=== PATIENT | male | born 1960 | race Caucasian/White ===

== ENCOUNTER → 2018-03-25 16:22 | Outpatient (CLI) | payer OTHER ==
[2011-01-09 06:44] VITALS: BMI 28.4
== END | disposition home or self-care (01) ==
LOC: D.RAD 16:22
DX: R07.9 Chest pain, unspecified (principal)

== ENCOUNTER → 2018-04-02 08:54 | Outpatient (CLI) | payer OTHER ==
[2011-01-09 06:44] VITALS: BMI 28.4
[2018-04-02 10:04] LABS: CREATININE - SERUM 0.8 mg/dL (0.6-1.3)
== END | disposition home or self-care (01) ==
LOC: D.CT 08:54
PROVIDERS: Family Medicine
DX: Z03.89 Encounter for observation for other suspected diseases and conditions ruled out (principal); K56.609 Unspecified intestinal obstruction, unspecified as to partial versus complete obstruction

== ENCOUNTER → 2020-05-16 21:09 | Outpatient (CLI) | payer OTHER ==
[2011-01-09 06:44] VITALS: BMI 28.4
[2020-05-16 22:17] LABS: ALKALINE PHOSPHATASE 86 U/L (30-120); ALT (SGPT) 22 U/L (10-68); BILIRUBIN - TOTAL 0.64 mg/dL (0.2-1.3); CALC OSMOLALITY 275 mosm/kg (275-300); CALCIUM 8.9 mg/dL (8.5-10.1); CARBON DIOXIDE 26.4 mmol/L (21.0-32.0); CHLORIDE - SERUM 101 mmol/L (98-107); GLUCOSE 110 mg/dL (74-106); POTASSIUM - SERUM 4.3 mmol/L (3.5-5.1); PROTEIN - SERUM 7.8 g/dL (6.4-8.2); SODIUM 137 mmol/L (136-145); UREA NITROGEN 16 mg/dL (7-18); eGFR NON AFRICAN AMERICAN 82 mL/min (90-120)
== END | disposition home or self-care (01) ==
LOC: D.LABREF 21:09
PROVIDERS: ATTEND Pediatrics
DX: C91.10 Chronic lymphocytic leukemia of B-cell type not having achieved remission (principal)